=== PATIENT | female | born 1970 | race Caucasian/White ===

== ENCOUNTER 2019-12-11 20:40 | Emergency (ER) | payer BC ==
[~2019-12-11] VITALS: Ht 167.6 cm; Wt 81.6 kg
[2019-12-11 20:46] VITALS: BP 161/95; Ht 167.6 cm; Wt 81.6 kg
== END 2019-12-11 22:00 | disposition home or self-care (01) ==
LOC: ED 20:40
DX: B34.9 Viral infection, unspecified (principal); J00 Acute nasopharyngitis [common cold]; Z88.0 Allergy status to penicillin; J45.909 Unspecified asthma, uncomplicated
CPT/HCPCS: 87804